=== PATIENT | male | born 1995 | race Caucasian/White ===

== ENCOUNTER 2018-02-08 21:04 | Emergency (ER) | payer BC | END 2018-02-08 21:23 | disposition home or self-care (01) | LOC: E/R 21:23 → FTE 21:04 | DX: J20.9 Acute bronchitis, unspecified (principal) | CPT/HCPCS: 99284; Z7502 ==

== ENCOUNTER 2018-07-14 14:39 | Emergency (ER) | payer BC ==
[2018-07-14] MEDS: ONDANSETRON (ODT) 4 MG TAB ODT (16:47)
[2018-07-14] MEDS: ACETAMINOPHEN 325 MG TAB PO (16:47)
== END 2018-07-14 17:02 | disposition home or self-care (01) ==
LOC: FTE 14:39
DX: R19.7 Diarrhea, unspecified (principal)
CPT/HCPCS: 99283; Z7502

== ENCOUNTER 2019-06-19 20:07 | Emergency (ER) | payer BC ==
[2019-06-19 21:30] LABS: URINE PH (Dip) POC 5.5 (5.0-8.5)
[2019-06-19 21:30] LABS: URINE BLOOD (Dip) POC Negative (NEGATIVE); URINE GLUCOSE (Dip) POC Negative (NEGATIVE); URINE KETONES (Dip) POC Negative (NEGATIVE); URINE LEUKOCYTE EST (Dip) POC Negative (NEGATIVE); URINE NITRITE (Dip) POC Negative (NEGATIVE); URINE TOTAL PROTEIN POC Negative (NEGATIVE)
== END 2019-06-19 21:52 | disposition home or self-care (01) ==
LOC: FTE 20:07
DX: R30.0 Dysuria (principal)
CPT/HCPCS: 81003; 87086; 87591; 99283

== ENCOUNTER 2019-07-08 19:02 | Emergency (ER) | payer BC ==
[2019-07-08] MEDS: DIPHTH/TET/ACEL PERTUSS (ADULT) 0.5 ML VIAL IM* (20:19)
== END 2019-07-08 20:30 | disposition home or self-care (01) ==
LOC: FTE 19:02
DX: T21.24XA Burn of second degree of lower back, initial encounter (principal); T21.25XA Burn of second degree of buttock, initial encounter; X03.3XXA Fall due to controlled fire, not in building or structure, initial encounter; Y92.9 Unspecified place or not applicable; Z23 Encounter for immunization
CPT/HCPCS: 90471; 90715; 99283-25

== ENCOUNTER 2019-07-29 14:50 | Emergency (ER) | payer BC ==
[2019-07-29 16:11] LABS: ADD UMIC NO; UR ASCORBIC ACID NEGATIVE (NEGATIVE); UR BILIRUBIN (Dip) NEGATIVE (NEGATIVE); UR BLOOD (Dip) NEGATIVE (NEGATIVE); UR CLARITY CLEAR (CLEAR); UR COLOR YELLOW (YELLOW); UR GLUCOSE (Dip) NEGATIVE (NEGATIVE); UR KETONES (Dip) NEGATIVE (NEGATIVE); UR LEUKOCYTE ESTERASE (Dip) NEGATIVE Leu/ul (NEGATIVE); UR NITRITE (Dip) NEGATIVE (NEGATIVE); UR SPECIFIC GRAVITY (Dip) 1.002 (1.003-1.030); UR TOTAL PROTEIN (Dip) NEGATIVE (NEGATIVE); UR UROBILINOGEN (Dip) NEGATIVE (NEGATIVE)
== END 2019-07-29 17:08 | disposition home or self-care (01) ==
LOC: FTE 17:08
DX: R30.0 Dysuria (principal)
CPT/HCPCS: 81003; 87086; 99283